=== PATIENT | male | born 1975 | race Caucasian/White ===

== ENCOUNTER 2022-05-18 11:16 | Emergency (ER) | payer BC ==
[~2022-05-18] VITALS: Ht 175.3 cm; Wt 116.4 kg
[2022-05-18] MEDS ORDERED: OMEP10CASR PO (11:38)
[2022-05-18] MEDS ORDERED: ATOR1TAB19 PO (11:38)
[2022-05-18] MEDS ORDERED: LISI20TA33 PO (11:38)
[2022-05-18 12:06] LABS: BASO % 0.4 % (0.0-1.0); EOS # 0.1 10^3/uL (0.0-0.5); EOS % 1.3 % (0.0-3.0); HEMOGLOBIN 14.7 g/dl (13.5-17.5); LYMPH # 1.8 10^3/uL (1.5-5.0); LYMPH % 23.8 % (24.0-44.0); MEAN CORPUSCULAR HEMOGLOBIN 31.5 pg (27.0-33.0); MEAN CORPUSCULAR HGB CONC 33.4 g/dl (32.0-36.5); MEAN CORPUSCULAR VOLUME 94.2 fl (80.0-96.0); MONO # 0.7 10^3/uL (0.0-0.8); MONO % 8.9 % (2.0-8.0); NEUTROPHILS % 65.2 % (36.0-66.0); PLATELET COUNT, AUTOMATED 183 10^3/uL (150-450); RED BLOOD COUNT 4.67 10^6/uL (4.30-6.10); WHITE BLOOD COUNT 7.7 10^3/uL (4.0-10.0)
[2022-05-18] MEDS ORDERED: ISOVUE-370 76% 100ML VIAL As Ordered ONE (12:15)
[2022-05-18 12:27] LABS: CK-MB VALUE MASS < 1.0 NG/ML (<3.6); LIPASE 49 U/L (12-53)
[2022-05-18 12:28] LABS: BILIRUBIN,DIRECT 0.2 MG/DL (<0.4)
[2022-05-18 12:29] LABS: ALBUMIN 4.4 G/DL (3.2-5.2); ALKALINE PHOSPHATASE 102 U/L (46-116); ALT/SGPT 96 U/L (7.0-40); AST/SGOT 93 U/L (<34); BILIRUBIN,TOTAL 0.6 MG/DL (0.3-1.2); CPK CREATINE PHOSPHOKINASE 168 U/L (46-171); MB/CK RELATIVE INDEX 0.59 (< OR =4); TOTAL PROTEIN 7.4 G/DL (5.7-8.2)
[2022-05-18 12:40] LABS: RSV AMPLIFICATION NEGATIVE (NEGATIVE)
[2022-05-18 13:34] LABS: CK-MB VALUE MASS < 1.0 NG/ML (<3.6)
[2022-05-18 13:36] LABS: CPK CREATINE PHOSPHOKINASE 172 U/L (46-171); MB/CK RELATIVE INDEX 0.58 (< OR =4)
[2022-05-18] MEDS ORDERED: PRED20TA PO (14:37)
[2022-05-18 15:18] VITALS: BP 143/74
== END 2022-05-18 15:20 | disposition home or self-care (01) ==
LOC: M ED 11:16
DX: R07.89 Other chest pain (principal); I10 Essential (primary) hypertension; E78.5 Hyperlipidemia, unspecified; K21.9 Gastro-esophageal reflux disease without esophagitis; Z79.899 Other long term (current) drug therapy
CPT/HCPCS: 71045; 71275; 80047; 80076; 82550; 82553; 83690; 83880; 84484; 85025; 87631; 93005; 93041; 94760; 96374; 99285; J1100